=== PATIENT | female | born 1960 | race American Indian/Alaskan Native ===

== ENCOUNTER 2017-08-15 11:04 | Emergency (ER) | payer OTHER ==
[2017-08-15 11:10] VITALS: BP 183/87; PULSE 80; RESP 20; TEMP 98.5; O2SAT 99
== END 2017-08-15 11:42 | disposition left against medical advice (07) ==
LOC: C.ER 11:04
DX: F11.10 Opioid abuse, uncomplicated (principal); Z02.9 Encounter for administrative examinations, unspecified

== ENCOUNTER 2017-08-19 12:10 | Emergency (ER) | payer OTHER ==
[2017-08-19 12:27] VITALS: BMI 38.9
[2017-08-19] MEDS ORDERED: Sodium Chloride 0.9% 1,000 ML IV ONE (13:15)
[2017-08-19] MEDS ORDERED: Sodium Chloride 0.9% 1,000 ML ONE (13:54)
[2017-08-19 14:19] LABS: BASO % 0.4 % (0.0-2.0); EOS # 0.2 K/uL (0.0-0.7); EOS % 3.5 % (0.0-4.0); HEMATOCRIT 34.5 % (34.0-47.0); LYMPH # 2.1 K/uL (1.0-4.3); LYMPH % 31.3 % (20.0-40.0); MEAN CORPUSCULAR HEMOGLOBIN 25.4 pg (27.0-31.0); MEAN PLATELET VOLUME 9.4 fL (7.2-11.7); MONO # 0.6 K/uL (0.0-0.8); MONO % 8.6 % (0.0-10.0); RED CELL DISTRIBUTION WIDTH 16.6 % (11.5-14.5); WHITE BLOOD COUNT 6.7 K/uL (4.8-10.8)
[2017-08-19 14:33] LABS: CHLORIDE 101 mmol/L (98-107); SODIUM 138 mmol/L (132-148)
[2017-08-19 14:34] LABS: POTASSIUM 3.8 mmol/L (3.6-5.2)
[2017-08-19 14:36] LABS: ALB/GLOB RATIO 0.9 (1.0-2.1); ALKALINE PHOSPHATASE 78 U/L (38-126); ALT/SGPT 35 U/L (9-52); AST/SGOT 35 U/L (14-36); BILIRUBIN,TOTAL 0.5 mg/dL (0.2-1.3); BLOOD UREA NITROGEN 12 mg/dL (7-17); CALCIUM 9.1 mg/dl (8.6-10.4); CARBON DIOXIDE 31 mmol/L (22-30); GFR AFRICAN-AMERICAN > 60; GLUCOSE,RANDOM 47 mg/dL (65-105); TOTAL PROTEIN 8.1 g/dL (6.3-8.3)
[2017-08-19 14:37] LABS: ALCOHOL SERUM < 10 mg/dl (0-10)
--- NOTE | 2017-08-19 14:44 | RAD ---
HISTORY: Productive cough COMPARISON: No prior. TECHNIQUE: Chest PA and lateral FINDINGS: LUNGS: No active pulmonary disease. PLEURA: No significant pleural effusion identified. No pneumothorax apparent. CARDIOVASCULAR: Upper limits normal cardiac size noted. No pulmonary vascular derangement identified. OSSEOUS STRUCTURES: No significant abnormalities. VISUALIZED UPPER ABDOMEN: Normal. OTHER FINDINGS: Surgical clips in the left chest including axilla. IMPRESSION: Upper limits normal cardiac silhouette. No acute pulmonary disease appreciated.
--- NOTE | 2017-08-19 15:22 | C.PDOC ---
Time Seen by Provider: 08/19/17 13:08 Chief Complaint (Nursing): Cough, Cold, Congestion History Per: Patient Onset/Duration Of Symptoms: Days (about 1 month) Current Symptoms Are (Timing): Still Present Associated Symptoms: Cough, Sputum Severity: Moderate Recent travel outside of the [place]: No Additional History Per: Prior Records Past Medical History Reviewed: Historical Data, Nursing Documentation, Vital Signs Vital Signs: Last Vital Signs Temp 98.3 F 08/19/17 12:28 Pulse 73 08/19/17 12:28 Resp 18 08/19/17 12:28 BP 152/88 H 08/19/17 12:28 Pulse Ox 98 08/19/17 12:28 - Medical History PMH: Diabetes Family History: States: Unknown Family Hx - Social History Hx Tobacco Use: Yes Hx Alcohol Use: No Hx Substance Use: Yes (Snorts Heroin) - Immunization History Hx Tetanus Toxoid Vaccination: No Hx Influenza Vaccination: No Hx Pneumococcal Vaccination: No Review Of Systems Except As Marked, All Systems Reviewed And Found Negative. Constitutional: Positive for: Malaise Cardiovascular: Negative for: Chest Pain Respiratory: Positive for: Cough, Sputum. Negative for: Shortness of Breath, Hemoptysis Gastrointestinal: Negative for: Vomiting, Abdominal Pain Genitourinary: Negative for: Dysuria Musculoskeletal: Negative for: Neck Pain, Back Pain Skin: Negative for: Rash Neurological: Negative for: Weakness, Numbness Physical Exam - Physical Exam Appears: Non-toxic, No Acute Distress Skin: Normal Color, Warm, Dry, No Rash Head: Atraumatic, Normacephalic Eye(s): bilateral: PERRL, EOMI Neck: Normal ROM, Supple Cardiovascular: Rhythm Regular Respiratory: Normal Breath Sounds, No Accessory Muscle Use Gastrointestinal/Abdominal: Soft, No Tenderness Back: No CVA Tenderness Extremity: Normal ROM, No Calf Tenderness Neurological/Psych: Oriented x3, Normal Motor, Normal Sensation ED Course And Treatment - Laboratory Results Result Diagrams: 08/19/17 14:06 08/19/17 14:06 Lab Interpretation: No Acute Changes O2 Sat by Pulse Oximetry: 98 Pulse Ox Interpretation: Normal - Radiology CXR: Viewed By Me, Read By Radiologist CXR Interpretation: Yes: No Acute Disease Reassessment Condition: Improved Disposition Counseled Patient/Family Regarding: Studies Performed, Diagnosis, Need For Followup, Rx Given, Smoking Cessation - Disposition Referrals: Polo Jameson MD [Medical Doctor] - Disposition: HOME/ ROUTINE Disposition Time: 15:23 Condition: STABLE Additional Instructions: Follow up with your doctor within 1 week for further evaluation and treatment. Return to the ER if you develop chest pain, shortness of breath, worsening of symptoms or if you have any other concerns. Prescriptions: Albuterol HFA [Ventolin HFA 90 mcg/actuation (8 g)] 2 puff IH Q4 PRN #1 unit PRN Reason: Cough And Congestion Azithromycin [Zithromax] 1 dose PO DAILY #1 pkt Instructions: Acute Bronchitis (ED) Forms: [employer] (Pashto) - Clinical Impression Clinical Impression: Bronchitis
[2017-08-19 15:42] VITALS: BP 154/94; PULSE 71; RESP 14; TEMP 98.1; O2SAT 99
== END 2017-08-19 15:42 | disposition home or self-care (01) ==
LOC: C.ER 12:10
DX: J40 Bronchitis, not specified as acute or chronic (principal); Z72.0 Tobacco use
CPT/HCPCS: 71020; 80053; 80320; 83880; 85025; 99284; J7040